=== PATIENT | male | born 1975 | race Two or more races ===

== ENCOUNTER 2024-04-30 11:36 | Outpatient (CLI) | payer OTHER | END 2024-04-30 11:56 | disposition home or self-care (01) | LOC: TOM 11:36 | PROVIDERS: ATTEND Internal Medicine | DX: K40.90 Unilateral inguinal hernia, without obstruction or gangrene, not specified as recurrent (principal); K57.93 Diverticulitis of intestine, part unspecified, without perforation or abscess with bleeding ==

== ENCOUNTER 2024-06-24 09:24 | Day surgery (SDC) | payer OTHER ==
[2024-06-17 11:42] VITALS: BP 118/78
[~2024-06-24] VITALS: Ht 167.6 cm; Wt 67.6 kg
[2024-06-24] MEDS ORDERED: CEFAZOLIN SODIUM 1,000 MG VIAL ONE (10:43)
[2024-06-24] MEDS ORDERED: BUPIVACAINE HCL/MPF 0.5% 30ML VIAL ONE (11:39)
[2024-06-24] MEDS ORDERED: TYLENOL ARTHRI650 MG PO (13:23)
[2024-06-24] MEDS ORDERED: TRAMADOL HCL50 MG PO (13:23)
[2024-06-24] MEDS ORDERED: KETO10TA2 PO (13:23)
[2024-06-24] MEDS ORDERED: MIRALAX17 GM PO (13:23)
[2024-06-24] MEDS ORDERED: KETOROLAC TROMETHAMINE 30 MG VIAL ONE (14:46)
== END 2024-06-24 17:40 | disposition home or self-care (01) ==
LOC: CIR.AMB 09:24
PROVIDERS: ATTEND Surgery
DX: K40.90 Unilateral inguinal hernia, without obstruction or gangrene, not specified as recurrent (principal); K42.0 Umbilical hernia with obstruction, without gangrene
CPT/HCPCS: 49650; 49592; C1781

== ENCOUNTER 2024-09-24 06:39 | Emergency (ER) | payer OTHER ==
[~2024-09-24] VITALS: Ht 167.6 cm; Wt 69.4 kg
[~2024-09-24 06:39] MED LIST: KETO10TA2 PO; MIRALAX17 GM PO; NEURONTIN300 MG PO; TRAMADOL HCL50 MG PO; TYLENOL ARTHRI650 MG PO
[2024-09-24] MEDS ORDERED: CEFTRIAXONE SODIUM 1,000 MG VIAL IM ONE (08:45)
[2024-09-24] MEDS ORDERED: ACETAMINOPHEN 325 MG TABLET PO ONE (08:45)
[2024-09-24 09:11] LABS: HEMATOCRIT 51.7 % (39.0-48.0); HEMOGLOBIN 18.2 g/dL (13-16.00); MEAN CELL VOLUME 93.2 fL (80.0-100.00); MEAN CORPUSCULAR HEMOGLOBIN 32.7 pg (27.00-32.0); MEAN CORPUSCULAR HGB CONC 35.1 g/dl (32.0-36.0); PLATELET COUNT 150 K/uL (150-450); RED BLOOD COUNT 5.55 M/uL (4.00-6.00)
[2024-09-24 09:38] LABS: PH,URINE 5.5 (5.0-8.0); URINE APPEARANCE Clear; URINE BILIRRUBIN Small (NEGATIVE); URINE COLOR Orange; URINE GLUCOSE Negative (NEGATIVE); URINE KETONE Trace (NEGATIVE); URINE LEUKOCYTE Trace; URINE NITRATE Negative; URINE PROTEIN 30 (NEGATIVE)
[2024-09-24 09:43] LABS: URINE BACTERIA 14.6 uL (0.0-1933); URINE EPITHELIAL CELLS 12.1 uL (0.0-38.8)
[2024-09-24] MEDS ORDERED: OSEL75CA PO (09:49)
[2024-09-24 10:17] LABS: URINE BLOOD Trace; URINE CAST 0.88 uL (0.0-1.40)
== END 2024-09-24 11:38 | disposition home or self-care (01) ==
LOC: ER 06:41
PROVIDERS: General Practice
DX: J10.1 Influenza due to other identified influenza virus with other respiratory manifestations (principal); R50.9 Fever, unspecified; Z20.822 Contact with and (suspected) exposure to COVID-19

== ENCOUNTER 2024-11-11 11:45 | Inpatient (IN) | payer OTHER ==
[~2024-11-11] VITALS: Ht 167.6 cm; Wt 68.9 kg
[~2024-11-11 11:45] MED LIST changes: +OSEL75CA PO
[2024-11-11 14:08] LABS: PARTIAL THROMBOPLASTIN TIME 26.2 SECONDS (22.0-34.0); PROTHROMBIN TIME 10.9 SECONDS (9.0-11.5)
[2024-11-11] MEDS ORDERED: GRALISE600 MG PO (14:45)
[2024-11-11] MEDS ORDERED: CLONAZEPAM0.5 M1 PO (14:45)
[2024-11-19] MEDS ORDERED: LIDOCAINE HCL 1%/EPINEPHRINE 20ML VIAL IJ ONE (09:45)
[2024-11-19] MEDS ORDERED: CEFTRIAXONE SODIUM 2,000 MG in 0.9 % SODIUM CHLORIDE 50 ML IV ONE (09:45)
[2024-11-19] MEDS ORDERED: BUPIVACAINE HCL 30 ML VIAL IJ ONE (09:45)
[2024-11-19] MEDS ORDERED: METRONIDAZOLE/SODIUM CHLORIDE 200 ML IV ONE (09:45)
[2024-11-19] MEDS ORDERED: SUGAMMADEX SODIUM 200 MG/2 ML VIAL IV ONE (10:53)
[2024-11-19] MEDS ORDERED: OxyCODONE HCL 5 MG TABLET (ROXICODONE) PO PRN (11:30)
[2024-11-19] MEDS ORDERED: ONDANSETRON HCL 2 MG/ML VIAL IV PRN (11:30)
[2024-11-19] MEDS ORDERED: MORPHINE SULFATE 4 MG/ML CARTRIDGE IV PRN (11:30)
[2024-11-19] MEDS ORDERED: RINGERS SOLUTION,LACTATED 1,000 ML IV SCH (11:30)
[2024-11-19] MEDS ORDERED: ACETAMINOPHEN 500 MG GEL..CAP PO SCH (12:00)
[2024-11-19] MEDS ORDERED: MORPHINE SULFATE 4 MG/ML VIAL IV ONE ×4 (12:25→15:30)
[2024-11-19] MEDS ORDERED: TAMSULOSIN HCL 0.4 MG CAP PO NR (13:00)
[2024-11-19] MEDS ORDERED: METRONIDAZOLE/SODIUM CHLORIDE 500 MG/100 ML PIGGYBACK IV SCH (13:00)
[2024-11-19] MEDS ORDERED: HYOSCYAMINE SULFATE 0.125 MG TAB.SUBL SL SCH (13:00)
[2024-11-19] MEDS ORDERED: LACTOBACILLUS ACIDOPHILUS 1 CAP CAP PO NR (13:00)
[2024-11-19] MEDS ORDERED: METRONIDAZOLE/SODIUM CHLORIDE 500 MG/100 ML PIGGYBACK IV ONE (13:35)
[2024-11-19] MEDS ORDERED: ENALAPRILAT DIHYDRATE 1.25 MG/ML VIAL IV ONE ×2 (13:43→14:23)
[2024-11-19] MEDS ORDERED: CIPROFLOXACIN IN 5 % DEXTROSE 400 MG/200 ML PIGGYBAG IV ONE (16:18)
[2024-11-19] MEDS ORDERED: HYOSCYAMINE SULFATE 0.125 MG TAB.SUBL ONE (16:18)
[2024-11-19 17:00] VITALS: BP 154/84; O2SAT 100
[2024-11-19] MEDS ORDERED: GABAPENTIN 300 MG CAPSULE PO SCH (17:00)
[2024-11-19] MEDS ORDERED: CIPROFLOXACIN IN 5 % DEXTROSE 400 MG/200 ML PIGGYBAG IV SCH (17:00)
[2024-11-19] MEDS ORDERED: CLONAZEPAM 0.5 MG TABLET PO SCH (21:00)
[2024-11-19] MEDS ORDERED: FAMOTIDINE/PF 20 MG/2 ML VIAL IV PUSH SCH (21:00)
[2024-11-20 01:14] VITALS: BP 137/72; O2SAT 100
[2024-11-20 07:46] LABS: HEMATOCRIT 44.7 % (39.0-48.0); HEMOGLOBIN 15.7 g/dL (13-16.00); MEAN CELL VOLUME 92.9 fL (80.0-100.00); MEAN CORPUSCULAR HEMOGLOBIN 32.7 pg (27.00-32.0); MEAN CORPUSCULAR HGB CONC 35.2 g/dl (32.0-36.0); PLATELET COUNT 165 K/uL (150-450); RED BLOOD COUNT 4.81 M/uL (4.00-6.00); RED CELL DISTRIBUTION WIDTH 13.3 % (11.5-14.5)
[2024-11-20 08:00] VITALS: BP 119/65; O2SAT 99
[2024-11-20 08:01] LABS: ALBUMIN 3.2 gm/dL (3.4-5.0); CALCIUM 8.9 mg/dL (8.5-10.1); CREATININE SERUM 0.86 mg/dL (0.70-1.30); GFR 95.32; MAGNESIUM 1.5 mg/dL (1.8-2.4); PHOSPHOROUS 2.9 mg/dL (2.5-4.9); POTASSIUM 3.97 mEq/L (3.5-5.1)
[2024-11-20] MEDS ORDERED: LACTOBACILLUS ACIDOPHILUS 1 CAP CAP PO SCH (09:00)
[2024-11-20] MEDS ORDERED: TAMSULOSIN HCL 0.4 MG CAP PO SCH (09:00)
[2024-11-20] MEDS ORDERED: MAGNESIUM SULFATE IN WATER 50 ML IV NR (10:45)
[2024-11-20 16:32] VITALS: BP 131/72; O2SAT 100
[2024-11-20] MEDS ORDERED: ENOXAPARIN SODIUM 40 MG/0.4 ML SYRINGE SUBCUTANEO SCH (17:00)
[2024-11-21 00:42] VITALS: BP 117/65; O2SAT 100
[2024-11-21 07:59] LABS: HEMATOCRIT 41.6 % (39.0-48.0); HEMOGLOBIN 14.7 g/dL (13-16.00); MEAN CELL VOLUME 93.6 fL (80.0-100.00); MEAN CORPUSCULAR HGB CONC 35.3 g/dl (32.0-36.0); PLATELET COUNT 146 K/uL (150-450); RED BLOOD COUNT 4.44 M/uL (4.00-6.00); RED CELL DISTRIBUTION WIDTH 13.2 % (11.5-14.5)
[2024-11-21 08:00] VITALS: BP 116/71; O2SAT 99
[2024-11-21 08:09] LABS: CALCIUM 8.9 mg/dL (8.5-10.1); CREATININE SERUM 0.83 mg/dL (0.70-1.30); GFR 99.31; POTASSIUM 4.52 mEq/L (3.5-5.1)
[2024-11-21] MEDS ORDERED: ENOXAPARIN SODIUM 40 MG/0.4 ML SYRINGE SUBCUTANEO SCH (09:00)
[2024-11-21] MEDS ORDERED: POTASSIUM PHOS,M-BASIC-D-BASIC 18 MM in 0.9 % SODIUM CHLORIDE 250 ML IV NR (09:45)
[2024-11-21 16:33] VITALS: BP 134/76; O2SAT 99
[2024-11-22 00:46] VITALS: BP 127/61; O2SAT 100
[2024-11-22 08:00] VITALS: BP 116/73; O2SAT 100
[2024-11-22 16:00] VITALS: BP 107/71; O2SAT 98
[2024-11-22] MEDS ORDERED: INTESTINEX680 M1 PO (17:42)
[2024-11-22] MEDS ORDERED: METRONIDAZOLE500 MG PO (17:42)
[2024-11-22] MEDS ORDERED: CIPRO500 MG PO (17:42)
[2024-11-22] MEDS ORDERED: TRAMADOL HCL50 MG PO (17:43)
[2024-11-22] MEDS ORDERED: HYOSCYAMINE0.125 M1 SL (17:43)
[2024-11-22] MEDS ORDERED: FAMOtidine 20 MG TABLET PO SCH (21:00)
== END 2024-11-23 08:40 | disposition home or self-care (01) | DRG 329 ==
LOC: O/R 11-19 05:55 → SURH 11-19 05:55
PROVIDERS: Surgery; ADMIT Surgery; ATTEND Surgery
PROC: 0DBP4ZZ Excision of Rectum, Percutaneous Endoscopic Approach (ICD-10-PCS; 2024-11-19)
PROC: 0DNW4ZZ Release Peritoneum, Percutaneous Endoscopic Approach (ICD-10-PCS; 2024-11-19)
PROC: 8E0W4CZ Robotic Assisted Procedure of Trunk Region, Percutaneous Endoscopic Approach (ICD-10-PCS; 2024-11-19)
PROC: 0DJD8ZZ Inspection of Lower Intestinal Tract, Via Natural or Artificial Opening Endoscopic (ICD-10-PCS; 2024-11-19)
PROC: 0DTN4ZZ Resection of Sigmoid Colon, Percutaneous Endoscopic Approach (ICD-10-PCS; principal; 2024-11-19 10:30)
DX: K57.20 Diverticulitis of large intestine with perforation and abscess without bleeding (principal); K65.1 Peritoneal abscess; K63.2 Fistula of intestine; K66.0 Peritoneal adhesions (postprocedural) (postinfection)
CPT/HCPCS: 44207; 44213; S2900